=== PATIENT | male | born 1940 | race Caucasian/White ===

== ENCOUNTER → 2020-10-26 14:44 | Outpatient (CLI) | payer MEDICARE, BC, SELFPAY ==
[2020-10-26 10:29] VITALS: BMI 26.2
== END ==
PROVIDERS: Referring Provider Physician Assistant; Visit Provider Physician Assistant
DX: R05 Cough (principal); Z20.828 Contact with and (suspected) exposure to other viral communicable diseases
CPT/HCPCS: 87635; U0003